=== PATIENT | male | born 1995 | race Caucasian/White ===

== ENCOUNTER 2021-02-22 03:38 | Emergency (ER) | payer OTHER, SELFPAY ==
--- NOTE | ~2021-02-22 | CT_ITS ---
EXAMINATION: CT ANGIOGRAM OF THE CHEST WITH AND WITHOUT CONTRAST (CT PULMONARY ANGIOGRAM FOR PE) CLINICAL INFORMATION: Reason for Exam Shortness of breath, chest pain COMPARISON: Chest radiograph 02/22/2021 TECHNIQUE: Prior to contrast administration, noncontrast localization images were obtained. Subsequently, multidetector volumetric imaging was performed from the thoracic inlet to below the diaphragms following the administration of 65 mL Omnipaque 350 intravenous contrast. No contrast reaction reported Sagittal, coronal, and MIP oblique sagittal reformatted images were obtained on the CT workstation, uploaded to PACS, and reviewed. This CT examination was performed using dose optimization techniques as appropriate, variously including the following: *Automated exposure control *Adjustment of mA and/or kV according to patient size (this includes techniques or standardized protocols for targeted exams where dose is matched to indication/reason for exam; i.e. extremities or head) *Use of iterative reconstruction technique Total exam dose-length product 293 mGy-cm FINDINGS: QUALITY OF STUDY/CONTRAST BOLUS: Satisfactory. PULMONARY ARTERIES: No central or segmental pulmonary emboli. THORACIC AORTA: No aneurysm or dissection. LUNG: There is subsegmental atelectasis at both posterior bases. There is no pneumothorax, airspace consolidation, or groundglass opacities. PLEURA: No pleural effusion or pneumothorax. MEDIASTINUM: Normal heart size. No pericardial effusion. No hilar or mediastinal lymphadenopathy. No evidence of septal bowing or right heart strain. No mediastinal hematoma. CHEST WALL/AXILLA: No axillary or internal mammary lymphadenopathy. OSSEOUS STRUCTURES: There is a fracture of the right posterior medial 11th rib and possibly at the right posterior medial 10th rib. There are hairline fractures involving right transverse process of T6 and T7 and possibly at right transverse process T8. There is mild superior endplate depression T5 of indeterminate age. No paraspinal soft tissue swelling. UPPER ABDOMEN: Unremarkable. No reflux of contrast into the hepatic veins to suggest elevated right heart pressures. CT/CT angio chest PE protocol IMPRESSION: 1. Fractures right posterior medial 11th rib, and possibly the 10th. Hairline fractures right transverse process T6 and T7, possibly T8. Mild superior endplate depression T5. No paraspinal soft tissue swelling. 2. No pneumothorax or mediastinal hematoma. No pleural thickening or effusion. 3. No pulmonary embolism. No thoracic aortic dissection. VTE: negative
--- NOTE | ~2021-02-22 | XR_ITS ---
EXAMINATION: XR CHEST CLINICAL INFORMATION: Chest wall pain, shortness of breath COMPARISON: None TECHNIQUE: 2 views of the chest were obtained. FINDINGS: Lung volumes are symmetric. No focal consolidation is seen. No evidence of pneumothorax, pleural effusion, or pulmonary edema. The cardiomediastinal contour is unremarkable. No acute osseous findings are seen. XR/XR chest 2V IMPRESSION: No acute cardiopulmonary findings.
[2021-02-22 04:47] VITALS: BP 126/56; PULSE 56; RESP 15; TEMP 37; O2SAT 98; BMI 21.1
--- NOTE | 2021-02-22 05:39 | ECG_ITS ---
Test Reason : SOB Blood Pressure : / mmHG Vent. Rate : 053 BPM Atrial Rate : 053 BPM P-R Int : 158 ms QRS Dur : 082 ms QT Int : 430 ms P-R-T Axes : 050 033 056 degrees QTc Int : 403 ms Sinus bradycardia Minimal voltage criteria for LVH, may be normal variant ST elevation, consider early repolarization Borderline ECG No previous ECGs available Referred By: Monica Mrcae Electronically Signed By:STELLA JOHNSON MD
[2021-02-22 05:54] VITALS: BP 126/62; PULSE 55; RESP 15; O2SAT 99
[2021-02-22 06:20] LABS: Lipase 42 U/L (8-78)
[2021-02-22 06:26] LABS: Troponin-I High Sensitivity < 3.5 ng/L (<3.5-35.0)
--- NOTE | 2021-02-22 06:26 | ED.SOB ---
HPI - SOB/Dyspnea General Chief Complaint: Dyspnea Stated Complaint: SOB, chest pain Time Seen by Provider: 02/22/21 05:27 Source: patient Mode of arrival: ambulatory History of Present Illness HPI Narrative: [age]old male without other significant medical history who presents shortness of breath since this morning without associated fever, chills, cough, sore throat, or recent travel. Related Data Allergies Allergy/AdvReac Type Severity Reaction Status Date / Time No Known Allergies Allergy Unverified 02/22/21 05:27 Review of Systems Review of Systems: Pertinent positives and negatives as stated in HPI 10 point review systems is otherwise negative. PMFSH Past Medical History Source: nursing notes reviewed Medical History No known health problems Surgical History [place] teeth extracted Social History Social History Alcohol intake: never Smoking Status: Never smoker Use of substances other than those prescribed or required for medical reasons: Yes Substance Use Type: Marijuana Substance Use Frequency: Weekly Advance Directives: No Advance Directives Information Provided: No Physical Exam Vital Signs: Vital Signs: Last Vital Signs Temp 98.6 F 02/22/21 04:47 Pulse 67 02/22/21 08:42 Resp 17 02/22/21 08:42 BP 118/63 02/22/21 08:42 Pulse Ox 99 02/22/21 08:42 Body Mass Index 21.1 VITAL SIGNS: Reviewed. GENERAL: Well developed, well nourished, in no acute distress. HEAD: Normocephalic/atraumatic EYES: PERRLA, EOMI EARS: Ext canals without abnormality NOSE: Nares patent bilateral OROPHARYNX: no oral lesions noted, posterior pharynx clear NECK: Supple, no adenopathy LUNGS: Normal breath sounds. No adventitious sounds or accessory muscle use. SpO2<99> CARDIOVASCULAR: Regular rate and rhythm without noted murmurs ABDOMEN: Soft, non-tender, non-distended with bowel sounds. NEUROLOGIC: Alert and oriented x 4. Course Course Course Narrative: 25-year-old male with history and clinical presentation consistent with seasonal allergy symptoms but will rule out pancreatitis, PE, cardiac arrhythmia. Review of all investigations negative for acute findings other than D-dimer elevated over 1999. CT angio with PE protocol is pending and patient was signed out to ADITHYA Armstrong. MDM - SOB/Dyspnea Lab Data Result diagrams: 02/22/21 05:53 Labs: Lab Results 02/22/21 02/22/21 02/22/21 Range/Units 05:53 05:53 05:53 D-Dimer 2006 NG/ML BUN 25 H (9-16) mg/dL Creatinine 0.72 (0.5-1.4) mg/dL Estim Creat Clear Calc 133.4 Estimated GFR > 60 Troponin I High Sens < 3.5 (<3.5-35.0) ng/L Lipase 42 (8-78) U/L ECG Data Attestation: I personally reviewed and interpreted this ECG as follows: Prior ECG tracings: not available for review Interpretation: Sinus bradycardia, HR-53, no evidence of acute ischemia, ND/QRS/QTC are within normal limits. Discharge Plan Discharge Clinical Impression: Breath, shortness, Seasonal allergies Patient Disposition: Home, Self-Care Instructions: Allergies (ED) Additional Instructions: Return to the ER if you develop any acute worsening of symptoms.
[2021-02-22 07:02] LABS: D Dimer 2006 NG/ML
[2021-02-22 08:42] VITALS: BP 118/63; PULSE 67; RESP 17; O2SAT 99
[2021-02-22 08:55] LABS: Blood Urea Nitrogen 25 mg/dL (9-16); Creatinine Clr Calc Pharmacy 133.4; Estimated Glomerular Filt Rate > 60
[2021-02-22] MEDS: iohexoL 350 MG/ML 100 ML INFUS..BTL 65 ML IV (09:18)
[2021-02-22] MEDS: oxyCODONE HCl Immed Release 5 MG TABLET PO (10:09)
[2021-02-22] MEDS: Ketorolac Tromethamine 30 MG/ML VIAL IVPUSH (10:09)
== END 2021-02-22 11:17 | disposition home or self-care (01) ==
PROVIDERS: Emergency Provider Student in an Organized Health Care Education/Training Program
DX: R06.02 Shortness of breath (principal); J30.2 Other seasonal allergic rhinitis; R00.1 Bradycardia, unspecified; S22.41XA Multiple fractures of ribs, right side, initial encounter for closed fracture; S22.059A Unspecified fracture of T5-T6 vertebra, initial encounter for closed fracture; S22.069A Unspecified fracture of T7-T8 vertebra, initial encounter for closed fracture; S22.050A Wedge compression fracture of T5-T6 vertebra, initial encounter for closed fracture; V03.00XA Pedestrian on foot injured in collision with car, pick-up truck or van in nontraffic accident, initial encounter; F12.90 Cannabis use, unspecified, uncomplicated; Y93.01 Activity, walking, marching and hiking; Y92.414 Local residential or business street as the place of occurrence of the external cause; Y99.9 Unspecified external cause status
CPT/HCPCS: 36415; 71046; 71275; 82565; 83690; 84484; 84520; 85379; 93005; 96374; 99285; J1885; Q9967